=== PATIENT | female | born 1950 | race Caucasian/White ===

== ENCOUNTER → 2019-08-05 10:56 | Outpatient (CLI) | payer MEDICARE, SELFPAY ==
--- NOTE | ~2019-08-05 | XR_ITS ---
XR foot RT min 3V DATE: 08/05/2019 11:41 INDICATION: Right hammertoe. Right plantar foot pain for several years. TECHNIQUE: 3 weightbearing views COMPARISON: None FINDINGS: There is prominent plantar and posterior calcaneal enthesopathy. Pes planus. Severe osteoarthritic change at the first metatarsophalangeal joint. Moderate osteopenia. No fracture, dislocation, periosteal reaction or bone destruction is detected. 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 [facility]
== END ==
PROVIDERS: Visit Provider Podiatrist Foot & Ankle Surgery
DX: M20.41 Other hammer toe(s) (acquired), right foot (principal); M77.31 Calcaneal spur, right foot; M19.071 Primary osteoarthritis, right ankle and foot
CPT/HCPCS: 73630

== ENCOUNTER → 2020-01-05 12:06 | Outpatient (CLI) | payer MEDICARE, SELFPAY ==
--- NOTE | ~2020-01-05 | MM_ITS ---
EXAMINATION: MM screening [facility] BI w miguel a HISTORY: Screening TECHNIQUE: Craniocaudal and mediolateral oblique 3-D tomosynthesis images were obtained and synthetic 2-D images were generated. CAD analysis was submitted and interpreted. COMPARISON: Comparison to multiple prior studies sequentially, with oldest reviewed study dated 01/2015. BREAST PARENCHYMAL COMPOSITION: There are scattered areas of fibroglandular density. FINDINGS: There is no evidence of suspicious mass, calcification, or architectural distortion to sugg est malignancy in either breast. There has been no suspicious interval change. IMPRESSION: 1. No mammographic evidence of malignancy. 2. Recommend routine screening mammography in one year. BI-RADS Category 1: Negative Reviewed, dictated and finalized at location D.
== END ==
PROVIDERS: PCP Internal Medicine; Visit Provider Student in an Organized Health Care Education/Training Program
DX: Z12.31 Encounter for screening mammogram for malignant neoplasm of breast (principal)
CPT/HCPCS: 77063; 77067

== ENCOUNTER → 2020-09-20 14:11 | Outpatient (CLI) | payer MEDICARE, SELFPAY ==
--- NOTE | ~2020-09-20 | XR_ITS ---
XR lumbar spine 2-3V 09/20/2020 14:24 Indication: Low back pain Procedure: 3 views lumbar spine Comparison: No prior studies for comparison. Findings: There is disc narrowing at all lumbar levels. There is vacuum phenomenon at L3-4. There is grade 1 degenerative spondylolisthesis at L3-4 secondary to facet hypertrophy. There is advanced mult ilevel facet hypertrophy of the mid and lower lumbar spine. No acute fracture or traumatic malalignme nt. Sacral foramen are symmetric. There is moderate colonic fecal loading. Impression: 1: Severe lumbar spondylosis. Reviewed, dictated and finalized at location A. Impression: 1: Severe lumbar spondylosis.
== END ==
PROVIDERS: PCP Internal Medicine; Visit Provider Nurse Practitioner
DX: M47.816 Spondylosis without myelopathy or radiculopathy, lumbar region (principal)
CPT/HCPCS: 72100

== ENCOUNTER 2020-10-02 08:25 | Outpatient (CLI) | payer MEDICARE, SELFPAY ==
--- NOTE | ~2020-10-02 | MR_ITS ---
EXAMINATION: MR lumbar spine wo con EXAM DATE: 10/02/2020 10:07 INDICATION: M54.5 - Low back pain TECHNIQUE: Multi-sequential, multiplanar MR images of the lumbar spine were obtained without contrast . Sagittal T1, T2, T2 fat saturation images. Axial T2 weighted images. There is no prior study for comparison. FINDINGS: The conus medullaris terminates at the L1/2 level and has normal signal intensity and morph ology. There is 6 mm is anterolisthesis L3 on L4 with moderate to severe disc disease, endplate dege nerative signal change. Moderate disc disease at L4-5 and mild to moderate at L5-S1. There are no foc al marrow signal abnormalities suspicious for malignancy or acute fracture. Paraspinal soft tissue is unremarkable. Level by level evaluation: T12-L1: There is a mild diffuse disc bulge. Facet arthropathy: Minimal. Neural foraminal stenosis: No stenosis. Central canal stenosis: No stenosis. L1-L2: Disc does not extend beyond the endplate margin. Facet arthropathy: Mild. Neural foraminal stenosis: No stenosis. Central canal stenosis: No stenosis. L2-L3: There is a mild to moderate diffuse disc bulge. Facet arthropathy: Mild to moderate. Neural foraminal stenosis: Minimal bilateral. Central canal stenosis: Mild. L3-L4: There is a moderate diffuse disc bulge. Facet arthropathy: Moderate to severe . Ligamentum flavum enlargement. Neural foraminal stenosis: Moderate left, mild to moderate right. Central canal stenosis: Moderate. L4-L5: There is a moderate diffuse disc bulge. Facet arthropathy: Mild. Neural foraminal stenosis: Mild to moderate bilateral. Central canal stenosis: Mild to moderate. L5-S1: There is a moderate diffuse disc bulge, superimposed tiny right central extrusion. Facet arthropathy: Mild. Neural foraminal stenosis: Mild to moderate bilateral. Central canal stenosis: Mild. IMPRESSION: 1. L3-4 moderate to severe disc disease, moderate central canal and left neural foraminal stenosis a nd grade 1 anterolisthesis. 2. Less spondylosis other levels. Reviewed, dictated and finalized at location B. IMPRESSION: 1. L3-4 moderate to severe disc disease, moderate central canal and left neura l foraminal stenosis and grade 1 anterolisthesis. 2. Less spondylosis other levels.
== END 2020-10-02 08:26 | disposition home or self-care (01) ==
PROVIDERS: PCP Internal Medicine; Visit Provider Nurse Practitioner
DX: M54.5 Low back pain (principal); G89.29 Other chronic pain; M51.9 Unspecified thoracic, thoracolumbar and lumbosacral intervertebral disc disorder; M43.16 Spondylolisthesis, lumbar region
CPT/HCPCS: 72148

== ENCOUNTER → 2021-05-23 11:43 | Outpatient (CLI) | payer MEDICARE, SELFPAY ==
--- NOTE | ~2021-05-23 | MM_ITS ---
EXAMINATION: MM screening [facility] BI w miguel a HISTORY: Screening mammogram TECHNIQUE: Craniocaudal and mediolateral oblique 3-D tomosynthesis images were obtained and synthetic 2-D images were generated. CAD analysis was submitted and interpreted. COMPARISON: 01/05/2020, 09/22/2018, 07/23/2017 BREAST PARENCHYMAL COMPOSITION: There are scattered areas of fibroglandular density. FINDINGS: There is no evidence of suspicious mass, calcification, or architectural distortion to sugg est malignancy in either breast. There has been no suspicious interval change. IMPRESSION: 1. No mammographic evidence of malignancy. 2. Recommend routine screening mammography in one year. BI-RADS Category 1: Negative Reviewed, dictated and finalized at location A. 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
== END ==
PROVIDERS: PCP Internal Medicine; Visit Provider Internal Medicine
DX: Z12.31 Encounter for screening mammogram for malignant neoplasm of breast (principal)
CPT/HCPCS: 77063; 77067

== ENCOUNTER 2021-11-05 12:34 | Outpatient (CLI) | payer MEDICARE, SELFPAY | END 2021-11-05 12:35 | disposition home or self-care (01) | LOC: ANHAUDASC 12:36 | PROVIDERS: PCP Internal Medicine; Visit Provider Nurse Practitioner | DX: H93.13 Tinnitus, bilateral (principal); H90.3 Sensorineural hearing loss, bilateral | CPT/HCPCS: 92557; 92567 ==

== ENCOUNTER 2022-01-30 10:45 | Outpatient (CLI) | payer MEDICARE, SELFPAY ==
[2022-01-30 19:00] LABS: Basophils Percent Auto 0.5 % (0.2-1.2); Eosinophils Absolute Auto 0.2 K/mm3 (0-0.3); Hemoglobin 12.4 g/dL (12.0-15.0); Immature Granulocyte Absolute 0.03 K/mm3 (0.00-0.031); Immature Granulocyte Percent A 0.4 % (0-0.5); Lymphocytes Absolute Auto 2.16 K/mm3 (0.9-3.2); Lymphocytes Percent Auto 26.9 % (18.3-44.2); Mean Corpuscular Hemoglobin 27.9 pg (26-34); Mean Corpuscular Volume 89.9 fl (80-100); Mean Platelet Volume 11.8 fl (7.4-10.4); Monocytes Absolute Auto 0.6 K/mm3 (0.1-0.6); Monocytes Percent Auto 7.3 % (2.6-8.5); Neutrophils Percent Auto 61.9 % (45.5-73.1); Platelet Count Result 256 k/mm3 (150-375); Red Blood Count 4.45 M/mm3 (4.2-5.4); Red Cell Distribution Width 14.2 % (11.5-14.5)
[2022-01-30 19:51] LABS: Hemoglobin A1C 6.9 % (<5.7)
[2022-01-30 20:17] LABS: Alanine Aminotransferase 25 U/L (6-35); Albumin Level 4.4 g/dL (3.5-5.1); Alkaline Phosphatase 70 U/L (38-126); Anion Gap 12 mmol/L (8-16); Aspartate Amino Transferase 27 U/L (14-36); Bilirubin,Total 0.4 mg/dL (0.2-1.3); Blood Urea Nitrogen 20 mg/dL (7-17); Calcium 9.6 mg/dL (8.4-10.2); Carbon Dioxide 30 mmol/L (22-30); Chloride 98 mmol/L (98-107); Estimated Glomerular Filt Rate > 60; Glucose 228 mg/dL (65-110); Potassium 3.9 mmol/L (3.4-5.0); Sodium 140 mmol/L (137-145)
== END 2022-01-30 10:46 | disposition home or self-care (01) ==
PROVIDERS: PCP Internal Medicine; Visit Provider Clinical Nurse Specialist
DX: I10 Essential (primary) hypertension (principal); E11.9 Type 2 diabetes mellitus without complications
CPT/HCPCS: 36415; 80053; 83036; 84443; 85025

== ENCOUNTER 2022-02-12 10:34 | Outpatient (CLI) | payer MEDICARE, SELFPAY ==
--- NOTE | ~2022-02-12 | MR_ITS ---
EXAMINATION: MR brain/brain stem wo/w con DATE: 02/12/2022 11:21 INDICATION: Dizziness. TECHNIQUE: Magnetic resonance imaging (MRI) of the brain and brainstem was performed without and with 20 mL MultiHance intravenous contrast. COMPARISON: Brain MRI 09/22/2008 FINDINGS: There is an empty sella. There is no intracranial hemorrhage, acute infarction, or abnormal intracranial mass lesion. 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 There are scattered areas of nonspecific increased T2-weighted signal intensity in the cerebral white matter. The ventric les are normal in size. The orbits are normal. There is mild mucosal thickening in right maxillary si nus. The mastoid air cells are normal. IMPRESSION: 1. 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 2. Worsened mild nonspecific cerebral white matter disease, which likely represents chronic small ves saravanan ischemic disease. Reviewed, dictated and finalized at location A. IMPRESSION: 1. 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 2. Worsened mild nonspecific cerebral white matter disease, which likely repres ents chronic small vessel ischemic disease.
== END 2022-02-12 10:35 | disposition home or self-care (01) ==
LOC: ANHIMG 10:35
PROVIDERS: PCP Internal Medicine; Visit Provider Clinical Nurse Specialist
DX: R26.9 Unspecified abnormalities of gait and mobility (principal); R42 Dizziness and giddiness; Z86.73 Personal history of transient ischemic attack (TIA), and cerebral infarction without residual deficits; R90.82 White matter disease, unspecified
CPT/HCPCS: 70553; A9577

== ENCOUNTER 2022-03-13 10:16 | Outpatient (CLI) | payer MEDICARE, SELFPAY ==
[2022-03-13 20:02] LABS: Hemoglobin A1C 7.5 % (<5.7)
[2022-03-13 20:17] LABS: Cholesterol 198 mg/dL (0-200); HDL Direct 42 mg/dL; Triglycerides 169 mg/dL (<150)
[2022-03-13 20:28] LABS: LDL Cholesterol Direct 105 mg/dL
[2022-03-13 20:31] LABS: Vitamin D 25 Hydroxy 44.7 ng/mL
== END 2022-03-13 10:17 | disposition home or self-care (01) ==
LOC: ANHGOSHLAB 10:17
PROVIDERS: PCP Internal Medicine; Visit Provider Internal Medicine
DX: E55.9 Vitamin D deficiency, unspecified (principal); E11.9 Type 2 diabetes mellitus without complications
CPT/HCPCS: 36415; 80061; 82306; 83036

== ENCOUNTER 2022-09-02 09:08 | Outpatient (CLI) | payer MEDICARE, SELFPAY ==
[2022-09-02 12:39] LABS: Alanine Aminotransferase 24 U/L (6-35); Albumin Level 4.1 g/dL (3.5-5.1); Alkaline Phosphatase 85 U/L (38-126); Anion Gap 7 mmol/L (8-16); Aspartate Amino Transferase 25 U/L (14-36); Basophils Percent Auto 0.5 % (0.2-1.2); Bilirubin,Total 0.6 mg/dL (0.2-1.3); Blood Urea Nitrogen 23 mg/dL (7-17); Carbon Dioxide 31 mmol/L (22-30); Chloride 98 mmol/L (98-107); Cholesterol 165 mg/dL (0-200); Eosinophils Absolute Auto 0.2 K/mm3 (0-0.3); Eosinophils Percent Auto 2.8 % (0-4.4); Estimated Glomerular Filt Rate > 60; Glucose 143 mg/dL (65-110); HDL Direct 41 mg/dL; Hematocrit 37.8 % (37.0-47.0); Hemoglobin 12.4 g/dL (12.0-15.0); Immature Granulocyte Absolute 0.03 K/mm3 (0.00-0.031); Immature Granulocyte Percent A 0.4 % (0-0.5); Lymphocytes Absolute Auto 2.42 K/mm3 (0.9-3.2); Mean Corpuscular HGB Conc 32.8 g/dl (32-36); Mean Corpuscular Volume 85.3 fl (80-100); Mean Platelet Volume 11.1 fl (7.4-10.4); Monocytes Absolute Auto 0.6 K/mm3 (0.1-0.6); Monocytes Percent Auto 7.9 % (2.6-8.5); Neutrophils Absolute Auto 4.7 K/mm3 (1.3-6.7); Neutrophils Percent Auto 58.4 % (45.5-73.1); Platelet Count Result 249 k/mm3 (150-375); Potassium 3.7 mmol/L (3.4-5.0); Red Blood Count 4.43 M/mm3 (4.2-5.4); Red Cell Distribution Width 13.9 % (11.5-14.5); Sodium 136 mmol/L (137-145); Triglycerides 130 mg/dL (<150); White Blood Count 8.1 K/mm3 (4.5-10.0)
[2022-09-02 12:51] LABS: LDL Cholesterol Direct 88 mg/dL
[2022-09-02 13:37] LABS: Vitamin D 25 Hydroxy 55.1 ng/mL
[2022-09-02 13:49] LABS: Hemoglobin A1C 6.9 % (<5.7)
== END 2022-09-02 09:09 | disposition home or self-care (01) ==
LOC: ANHGOSHLAB 09:11
PROVIDERS: PCP Internal Medicine; Visit Provider Nurse Practitioner
DX: E11.9 Type 2 diabetes mellitus without complications (principal); I10 Essential (primary) hypertension; E78.5 Hyperlipidemia, unspecified; E55.9 Vitamin D deficiency, unspecified
CPT/HCPCS: 36415; 80053; 80061; 82306; 83036; 85025

== ENCOUNTER 2023-01-21 15:25 | Outpatient (CLI) | payer MEDICARE, SELFPAY ==
[2023-01-21 16:33] LABS: Appearance Urine Cloudy (Clear); Bacteria Urine 4+ /hpf; Bilirubin Urine Negative (Negative); Blood Urine Negative (Negative); Color Urine Dark Yellow (Yellow); Glucose Urine UA Negative (Negative); Ketones Urine Trace mg/dL (Negative); Leukocyte Esterase Ur 2+ LEU/UL (Negative); Nitrate Urine Positive (Negative); Protein Urine Negative (Negative); RBC Urine 0-2 /hpf (0-2); Specific Grav Ur 1.018 (1.001-1.035); Squamous Epithelial Cell Urine Few /hpf (Few); WBC Urine 21-50 /hpf
[2023-01-21 16:49] LABS: Add Urine Microscopic? YES
== END 2023-01-21 15:26 | disposition home or self-care (01) ==
PROVIDERS: PCP Internal Medicine; Visit Provider Registered Nurse
DX: R39.9 Unspecified symptoms and signs involving the genitourinary system (principal)
CPT/HCPCS: 81001; 87077; 87086; 87186

== ENCOUNTER 2023-02-13 14:57 | Outpatient (CLI) | payer MEDICARE, SELFPAY ==
[2023-02-13 16:19] LABS: MALB Creatinine Ratio < 8.5 mg/g (0-30); Microalbumin Urine Random < 6.0 mg/L (0-16.7)
== END 2023-02-13 14:58 | disposition home or self-care (01) ==
PROVIDERS: Nurse Practitioner; PCP Internal Medicine; Visit Provider Registered Nurse
DX: N39.0 Urinary tract infection, site not specified (principal); E11.9 Type 2 diabetes mellitus without complications; I10 Essential (primary) hypertension
CPT/HCPCS: 82043; 87086

== ENCOUNTER 2023-02-18 10:27 | Outpatient (CLI) | payer MEDICARE, SELFPAY ==
[2023-02-18 11:53] LABS: Anion Gap 6 mmol/L (8-16); Blood Urea Nitrogen 17 mg/dL (7-17); Calcium 9.1 mg/dL (8.4-10.2); Carbon Dioxide 29 mmol/L (22-30); Chloride 101 mmol/L (98-107); Estimated Glomerular Filt Rate > 60; Glucose 133 mg/dL (65-110); Potassium 3.7 mmol/L (3.4-5.0); Sodium 136 mmol/L (137-145)
== END 2023-02-18 10:28 | disposition home or self-care (01) ==
LOC: ANHLAB 10:29
PROVIDERS: PCP Internal Medicine; Visit Provider Nurse Practitioner
DX: E11.9 Type 2 diabetes mellitus without complications (principal); I10 Essential (primary) hypertension
CPT/HCPCS: 36415; 80048; 83036

== ENCOUNTER → 2023-05-22 10:35 | Outpatient (CLI) | payer MEDICARE, SELFPAY ==
--- NOTE | ~2023-05-22 | MM_ITS ---
EXAMINATION: MM screening [facility] BI w miguel a HISTORY: Screening mammogram TECHNIQUE: Craniocaudal and mediolateral oblique 3-D tomosynthesis images were obtained and synthetic 2-D images were generated. CAD analysis was submitted and interpreted. COMPARISON: 05/23/2021, 01/05/2020 bilateral screening mammogram examinations BREAST PARENCHYMAL COMPOSITION: There are scattered areas of fibroglandular density. FINDINGS: There is no evidence of suspicious mass, calcification, or architectural distortion to sugg est malignancy in either breast. There has been no suspicious interval change. IMPRESSION: 1. No mammographic evidence of malignancy. 2. Recommend routine screening mammography in one year. BI-RADS Category 1: Negative Reviewed, dictated and finalized at location A. 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
== END ==
PROVIDERS: PCP Nurse Practitioner; Visit Provider Nurse Practitioner
DX: Z12.31 Encounter for screening mammogram for malignant neoplasm of breast (principal)
CPT/HCPCS: 77063; 77067

== ENCOUNTER 2023-05-22 10:37 | Outpatient (CLI) | payer MEDICARE, SELFPAY ==
--- NOTE | ~2023-05-22 | DEXA_ITS ---
Bone Density Report Name: VICKY VASQUEZ Age: 73 Sex: Female Ethnicity: White Date of : 1950 Indication: postmenopausal; screening for osteoporosis; height loss; hysterectomy; Referring Provider: GONZALO CRANE Study: Bone densitometry was performed. Exam Date: May 22, 2023 Accession number: [id number] Bone Density: Region BMD T-score Z-score Classification AP Spine (L1, L2, L3) 1.026 0.1 2.3 Normal Femoral Neck (Left) 0.848 0.0 1.9 Normal Total Hip (Left) 1.039 0.8 2.4 Normal Femoral Neck (Right) 0.803 -0.4 1.5 Normal Total Hip (Right) 0.964 0.2 1.8 Normal Total Hip Mean 1.002 0.5 2.1 Normal World Health Organization criteria for BMD impression classify patients as: Normal (T-score at or above -1.0), Osteopenia (T-score between -1.0 and -2.5), or Osteoporosis (T-score at or below -2.5). 10-year Fracture Risk: FRAX not reported because: All T-scores for Spine Total, Hip Total, Femoral Neck at or above -1.0 Previous Exams: Region Exam Age BMD T-score BMD Change BMD Change Date g/cm2 vs Baseline vs Previous AP Spine(L1, L2, L3) 05/22/2023 73 1.026 0.1 -0.081* -0.081* 09/22/2018 68 1.108 0.8 Total Hip(Left) 05/22/2023 73 1.039 0.8 0.002 0.002 09/22/2018 68 1.037 0.8 Total Hip(Right) 05/22/2023 73 0.964 0.2 -0.037* -0.037* 09/22/2018 68 1.000 0.5 *Denotes significance at 95% confidence level, LSC for AP Spine = 0.022 g/cm2, LSC for Total Hip = 0.027 g/cm2 Clinical Information Provided by Patient: Has used the following medications: Vitamin D Has the following medical conditions: Hysterectomy Patient maximum height was 66.5 Menopause Age: 53 No regular weight bearing exercise Does not regularly consume dairy products Drinks caffeinated beverages Onset of menses at age 15 Number of children 2 Impression: The patient has normal bone mass. The BMD for the AP Spine(L1, L2, L3) decreased, changing by -0.081 since the last DXA exam. The BMD for the Total Hip(Right) decreased, changing by -0.037 since the last DXA exam. Discussion: BONE DENSITY IS ABOVE THE MINIMUM DESIRABLE LEVEL AT ALL SKELETAL SITES TESTED. This patient?s bone mineral density is above the minimum desirable level (T-score -1.0 or better) at all sites measured. The patient should follow a healthful lifestyle (good nutrition with adequate calcium and vitamin D, and appropriate weight-bearing ex
== END 2023-05-22 10:38 ==
LOC: MICIMG 10:37
PROVIDERS: PCP Registered Nurse; Visit Provider Registered Nurse
DX: Z13.820 Encounter for screening for osteoporosis (principal); R29.890 Loss of height; N95.0 Postmenopausal bleeding; Z78.0 Asymptomatic menopausal state
CPT/HCPCS: 77080

== ENCOUNTER 2023-06-10 08:48 | Day surgery (SDC) | payer MEDICARE, SELFPAY ==
--- NOTE | ~2023-06-10 | XR_ITS ---
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 TECHNIQUE: 9 fluoroscopic images of the lumbar spine were obtained during bilateral L3, L4, and L5 bl ocks performed by the surgeon. I was not present in the operating room. Fluoroscopy exposure time was 45.1 seconds. Air Kerma 33.36 mGy. COMPARISON: None FINDINGS: Multiple fluoroscopic images demonstrate needle access at the L3, L4, and L5 vertebral levels lateral ly, followed by contrast injection. IMPRESSION: Fluoroscopic documentation of bilateral L3, L4, and L5 blocks. Please refer to the operative note for complete procedural details . Reviewed, dictated and finalized at location K. 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
--- NOTE | 2023-06-10 09:10 | WPDHPUPDATE1 ---
History and Physical Update Update Date/Time: 06/10/23 09:10 History and Physical has been reviewed, including an updated exam of the patient. There are NO changes in the patient's condition. Risks, benefits, and alternatives have been discussed and questions answered. Patient agrees to proceed with procedure.
[2023-06-10 09:24] VITALS: BP 151/76; PULSE 72; RESP 16; TEMP 36.7; O2SAT 99
[2023-06-10 11:35] VITALS: BP 157/76; PULSE 75; RESP 17; O2SAT 98
[2023-06-10] MEDS: BUPivacaine HCL 0.5% 10 ML AMP 5 ML INFILTRATE (11:41)
[2023-06-10 11:45] VITALS: BP 131/68; PULSE 75; RESP 22; O2SAT 96
--- NOTE | 2023-06-10 11:58 | W.PM.PROC2 ---
Procedure Note - Detailed Date of Procedure 06/10/23 Pre-op Diagnosis Spondylosis Lumbosacral Region, chronic low back pain Post-op Diagnosis Same Procedure Performed bilateral L3, L4, L5 medial branch/dorsal ramus nerve blocks (#1) addressing the bilateral L4-5, L5-S1 facet joints under fluoroscopic guidance with contrast control. Surgeon Howie Spencer MD Anesthesia Local Description of Procedure INFORMED CONSENT: Risks, benefits and alternatives to the procedure were discussed in detail with the patient who expressed explicit understanding and consent to proceed. Patient was informed verbally and in written form regarding the risks associated with the procedure including the low risk of serious infection, bleeding/bruising, allergic reaction, nerve or organ injury, paralysis, procedural site pain or discomfort, worsening pain and/or mobility, failure to treat and/or disfigurement. The patient expressed explicit understanding and consent to proceed. All materials required for the procedure were available prior to procedure start. Site and side were marked prior to procedure and confirmed in the presence of the patient. PROCEDURE IN DETAIL: The patient was brought to the procedural suite and placed in the prone position. Patient was made comfortable with use of pillows under the head/chest, hips and ankles. Skin overlying the injection site on the affected side(s) was prepared broadly with ChloraPrep applicator and draped in a sterile manner. Aseptic technique was used throughout. The endplates of the vertebral bodies at the site(s) of interest were aligned in the AP view. Ipsilateral oblique angulation was utilized to optimize visualization of the intersection between the superior articulating process and transverse process at each target site. Local anesthesia was established by infiltration with approximately 5 mL of 1% lidocaine via a 1-1/2 inch 27-gauge needle. A 25-gauge 5.0 inch Quincke spinal needle was advanced until the needle tip contacted periosteum at the target site, right L3. Lateral view was utilized to confirm the appropriate placement of the needle tip just anterior to the facet line and superior to the pedicle. In the Lateral view, 0.25 mL of Omnipaque 300 contrast medium was injected after negative aspiration for CSF, blood or other bodily fluid, showing appropriate extra-articular spread of contrast without evidence of intravascular, foraminal or intrathecal placement. A 0.5 mL solution of 0.5% preservative-free bupivacaine was injected after negative repeat aspiration. Appropriate spread of the injectate was confirmed with washout of previously injected contrast. No parasthesias were elicited. Needle was removed completely intact without difficulty. The same exact procedure was repeated for all remaining levels on the ipsilateral side, right L4, L5 medial branches/dorsal ramus, modified as necessary to accommodate for the new target location with identical findings and results and no evidence of complication. The same exact procedure was repeated for all remaining levels on the contralateral side, left L3, L4, L5 medial branches/dorsal ramus, modified as necessary to accommodate for the new target location with identical findings and results and no evidence of complication. Images were saved and documented in the patient chart. Patient's skin was cleaned and sterile bandage applied. The patient tolerated the procedure well. The patient was transported to the recovery area in stable condition where they were observed for an appropriate amount of time prior to discharge, without evidence of complication. Patient was instructed on the appropriate completion of a pain diary over the next 12-24 hours. The patient was instructed to avoid excessive activity for the next 48 hours, including climbing and frequent use of stairs. Showers only for 48 hours. They were instructed not to drive or operate heavy machinery for 24 hours. They are to mo
[2023-06-10] MEDS: LIDOCAINE HCL 1% PF INJ 5 ML VIAL INFILTRATE (12:01)
[2023-06-10 12:05] VITALS: BP 138/72; PULSE 65; RESP 20; O2SAT 93
== END 2023-06-10 12:18 | disposition home or self-care (01) ==
PROVIDERS: PCP Internal Medicine; Visit Provider Anesthesiology Pain Medicine
PROC: (CPT 64493; principal; 2023-06-10 11:00)
DX: M47.817 Spondylosis without myelopathy or radiculopathy, lumbosacral region (principal); M54.59 Other low back pain
CPT/HCPCS: 64493; 64494; 64495; 99199

== ENCOUNTER → 2023-06-30 10:59 | Outpatient (CLI) | payer MEDICARE, SELFPAY ==
--- NOTE | ~2023-06-30 | MR_ITS ---
MRI of the lumbar spine Clinical History: Spinal stenosis Technique: Axial T2-weighted images, and sagittal T1-weighted, T2-weighted, and and T2 fat-sat images were acquired. COMPARISON: 10/02/2020 Findings: There is no acute fracture of the lumbar spine. 5 mm anterolisthesis of L3 over L4 similar to prior exam. No suspicious bone marrow signal reality seen. At L1-L2, there is minimal disc bulge with mild facet arthropathy. No central canal stenosis or defin ite neural foraminal narrowing. At L2-L3, there is mild disc bulge with moderate facet arthropathy. No central canal stenosis. Probab le minimal left neural foraminal narrowing. At L3-L4, there is advanced degenerative disc narrowing. There is diffuse disc bulge with severe face t arthropathy, resulting in mild central canal stenosis. There is severe left neural foraminal narrow ing, and minimal right neural foraminal narrowing. At L4-L5, there is advanced degenerative disc narrowing. There is diffuse disc bulge with moderate to advanced facet arthropathy. No central canal stenosis identified. There is mild to moderate bilatera l neural foraminal narrowing. At L5-S1, there is disc bulge and advanced facet arthropathy. No central canal stenosis. There is mil d to moderate bilateral neural foraminal narrowing, left worse than right. Paravertebral soft tissues are unremarkable. Impression: Moderate degenerative spondylosis, as above, probably worst at L3-L4. 5 mm anterolisthesis of L3 over L4. Reviewed, dictated and finalized at [facility]. CTOR OF LEARNING Impression: Moderate degenerative spondylosis, as above, probably worst at L3-L4. 5 mm anterolisthesis of L3 over L4.
== END ==
PROVIDERS: PCP Internal Medicine; Visit Provider Anesthesiology Pain Medicine
DX: M54.51 Vertebrogenic low back pain (principal); M48.061 Spinal stenosis, lumbar region without neurogenic claudication; M43.06 Spondylolysis, lumbar region
CPT/HCPCS: 72148

== ENCOUNTER 2023-07-08 07:33 | Day surgery (SDC) | payer MEDICARE, SELFPAY ==
--- NOTE | ~2023-07-08 | XR_ITS ---
EXAMINATION: XR fluoroscopy no charge DATE: 07/08/2023 10:56 INDICATION: Bilateral L3-L5 nerve blocks TECHNIQUE: 15 fluoroscopic images of the lumbar spine were obtained during procedure performed by Dr. Spencer. Radiologist was not present for the imaging or procedure. The amount of fluoroscopy time used during this procedure was 0.4 minutes. COMPARISON: None. FINDINGS: Images demonstrate needles advanced to the region of the junction of the superior facet and transvers e processes of L4-S1 on both the left and right. IMPRESSION: 1. Fluoroscopy utilized during pain management procedure the lower lumbar spine. See procedure note f or further detail. Reviewed, dictated and finalized at location A. PROCESSOR IMPRESSION: 1. Fluoroscopy utilized during pain management procedure the lower lumbar spine . See procedure note for further detail.
--- NOTE | 2023-07-08 08:12 | WPDHPUPDATE1 ---
History and Physical Update Update Date/Time: 07/08/23 08:12 History and Physical has been reviewed, including an updated exam of the patient. There are NO changes in the patient's condition. Risks, benefits, and alternatives have been discussed and questions answered. Patient agrees to proceed with procedure.
--- NOTE | 2023-07-08 08:14 | W.PM.PROC2 ---
Procedure Note - Detailed Date of Procedure 07/08/23 Pre-op Diagnosis Lumbosacral Spondylosis, Chronic low back pain Post-op Diagnosis Same Procedure Performed bilateral L3, L4, L5 medial branch/ dorsal ramus nerve blocks (#2) addressing the bilateral L4-5, L5-S1 facet joints under fluoroscopic guidance with contrast control. Surgeon Howie Spencer MD Anesthesia Local Description of Procedure INFORMED CONSENT: Risks, benefits and alternatives to the procedure were discussed in detail with the patient who expressed explicit understanding and consent to proceed. Patient was informed verbally and in written form regarding the risks associated with the procedure including the low risk of serious infection, bleeding/bruising, allergic reaction, nerve or organ injury, paralysis, procedural site pain or discomfort, worsening pain and/or mobility, failure to treat and/or disfigurement. The patient expressed explicit understanding and consent to proceed. All materials required for the procedure were available prior to procedure start. Site and side were marked prior to procedure and confirmed in the presence of the patient. PROCEDURE IN DETAIL: The patient was brought to the procedural suite and placed in the prone position. Patient was made comfortable with use of pillows under the head/chest, hips and ankles. Skin overlying the injection site on the affected side(s) was prepared broadly with ChloraPrep applicator and draped in a sterile manner. Aseptic technique was used throughout. The endplates of the vertebral bodies at the site(s) of interest were aligned in the AP view. Ipsilateral oblique angulation was utilized to optimize visualization of the intersection between the superior articulating process and transverse process at each target site. Local anesthesia was established by infiltration with approximately 5 mL of 1% lidocaine via a 1-1/2 inch 27-gauge needle. A 25-gauge 5.0 inch Quincke spinal needle was advanced until the needle tip contacted periosteum at the target site, right L3. Lateral view was utilized to confirm the appropriate placement of the needle tip just anterior to the facet line and superior to the pedicle. In the Lateral view, 0.25 mL of Omnipaque 300 contrast medium was injected after negative aspiration for CSF, blood or other bodily fluid, showing appropriate extra-articular spread of contrast without evidence of intravascular, foraminal or intrathecal placement. A 0.5 mL solution of 2.0% preservative-free lidocaine was injected after negative repeat aspiration. Appropriate spread of the injectate was confirmed with washout of previously injected contrast. No parasthesias were elicited. Needle was removed completely intact without difficulty. The same exact procedure was repeated for all remaining levels on the ipsilateral side, right L4, L5 medial branches/dorsal ramus, modified as necessary to accommodate for the new target location with identical findings and results and no evidence of complication. The same exact procedure was repeated for all remaining levels on the contralateral side, left L3, L4, L5 medial branches/dorsal ramus, modified as necessary to accommodate for the new target location with identical findings and results and no evidence of complication. Images were saved and documented in the patient chart. Patient's skin was cleaned and sterile bandage applied. The patient tolerated the procedure well. The patient was transported to the recovery area in stable condition where they were observed for an appropriate amount of time prior to discharge, without evidence of complication. Patient was instructed on the appropriate completion of a pain diary over the next 12-24 hours. The patient was instructed to avoid excessive activity for the next 48 hours, including climbing and frequent use of stairs. Showers only for 48 hours. They were instructed not to drive or operate heavy machinery for 24 hours. They are to monitor fo
[2023-07-08 08:23] VITALS: BP 146/80; PULSE 90; RESP 20; TEMP 36.6; O2SAT 98
[2023-07-08 09:14] VITALS: BP 155/83; PULSE 90; RESP 15; O2SAT 96
[2023-07-08 09:18] VITALS: BP 162/85; PULSE 88; RESP 18; O2SAT 98
[2023-07-08 09:26] VITALS: BP 162/81; PULSE 94; RESP 13; O2SAT 97
[2023-07-08] MEDS: LIDOCAINE HCL 2% PF INJ 5 ML VIAL 3 ML INFILTRATE (09:28)
[2023-07-08 09:34] VITALS: BP 138/72; PULSE 83; RESP 18; O2SAT 97
[2023-07-08] MEDS: LIDOCAINE HCL 1% PF INJ 5 ML VIAL XX (09:35)
== END 2023-07-08 09:47 | disposition home or self-care (01) ==
PROVIDERS: PCP Internal Medicine; Visit Provider Anesthesiology Pain Medicine
PROC: (CPT 64493; principal; 2023-07-08 09:15)
DX: M47.817 Spondylosis without myelopathy or radiculopathy, lumbosacral region (principal); M54.59 Other low back pain
CPT/HCPCS: 64493; 64494; 99199

== ENCOUNTER 2023-08-29 09:36 | Outpatient (CLI) | payer MEDICARE, SELFPAY ==
[2023-08-29 13:33] LABS: Basophils Percent Auto 0.4 % (0.2-1.2); Eosinophils Absolute Auto 0.2 K/mm3 (0-0.3); Eosinophils Percent Auto 2.6 % (0-4.4); Hematocrit 39.3 % (37.0-47.0); Hemoglobin 12.2 g/dL (12.0-15.0); Immature Granulocyte Absolute 0.03 K/mm3 (0.00-0.031); Immature Granulocyte Percent A 0.4 % (0-0.5); Lymphocytes Absolute Auto 2.27 K/mm3 (0.9-3.2); Lymphocytes Percent Auto 29.9 % (18.3-44.2); Mean Corpuscular Hemoglobin 27.2 pg (26-34); Mean Corpuscular Volume 87.5 fl (80-100); Mean Platelet Volume 11.5 fl (7.4-10.4); Monocytes Absolute Auto 0.6 K/mm3 (0.1-0.6); Monocytes Percent Auto 7.4 % (2.6-8.5); Neutrophils Absolute Auto 4.5 K/mm3 (1.3-6.7); Neutrophils Percent Auto 59.3 % (45.5-73.1); Platelet Count Result 276 k/mm3 (150-375); Red Blood Count 4.49 M/mm3 (4.2-5.4); Red Cell Distribution Width 14.7 % (11.5-14.5); White Blood Count 7.6 K/mm3 (4.5-10.0)
[2023-08-29 13:47] LABS: Cholesterol 167 mg/dL (0-200); HDL Direct 39 mg/dL; Triglycerides 137 mg/dL (<150)
[2023-08-29 13:53] LABS: Prothrombin Time 13.5 Seconds (11.1-14.7)
[2023-08-29 13:54] LABS: Partial Thromboplastin Time 31.2 Seconds (22.3-36.8)
[2023-08-29 13:57] LABS: LDL Cholesterol Direct 109 mg/dL
[2023-08-29 14:05] LABS: Alanine Aminotransferase 25 U/L (6-35); Alkaline Phosphatase 83 U/L (38-126); Anion Gap 3 mmol/L (4-12); Aspartate Amino Transferase 54 U/L (14-36); Bilirubin,Total 0.6 mg/dL (0.2-1.3); Blood Urea Nitrogen 20 mg/dL (7-17); Calcium 9.5 mg/dL (8.4-10.2); Carbon Dioxide 33 mmol/L (22-30); Chloride 101 mmol/L (98-107); Estimated Glomerular Filt Rate > 60; Glucose 163 mg/dL (65-110); Sodium 137 mmol/L (137-145)
[2023-08-29 14:12] LABS: Vitamin D 25 Hydroxy 65.7 ng/mL
[2023-08-29 14:26] LABS: Hemoglobin A1C 8.3 % (<5.7)
== END 2023-08-29 09:37 | disposition home or self-care (01) ==
PROVIDERS: Anesthesiology Pain Medicine; Nurse Practitioner; PCP Internal Medicine; Visit Provider Internal Medicine
DX: M54.51 Vertebrogenic low back pain (principal); E11.59 Type 2 diabetes mellitus with other circulatory complications; I15.2 Hypertension secondary to endocrine disorders; N89.8 Other specified noninflammatory disorders of vagina; E55.9 Vitamin D deficiency, unspecified
CPT/HCPCS: 36415; 80053; 80061; 82306; 83036; 85025; 85610; 85730

== ENCOUNTER 2024-02-06 12:41 | Outpatient (CLI) | payer MEDICARE, SELFPAY ==
[2024-02-06 13:09] LABS: Anion Gap 9 mmol/L (4-12); Blood Urea Nitrogen 15 mg/dL (7-17); Calcium 9.6 mg/dL (8.4-10.2); Carbon Dioxide 32 mmol/L (22-30); Chloride 97 mmol/L (98-107); Estimated Glomerular Filt Rate > 60; Glucose 170 mg/dL (65-110); Potassium 4.7 mmol/L (3.4-5.0); Sodium 138 mmol/L (137-145)
--- NOTE | 2024-02-06 13:10 | ECG_ITS ---
Test Date: 2024-02-06 13:32:52 Measurements Intervals [place] Rate: P: ME: QRS: QRSD: T: QT: QTc: Interpretive Statements SINUS RHYTHM WITH FIRST DEGREE AV BLOCK LOW VOLTAGE IN PRECORDIAL LEADS BORDERLINE ECG Electronically Signed On 02-06-2024 15:36:20 CDT by Filemon Kay D.O.
== END 2024-02-06 12:42 | disposition home or self-care (01) ==
LOC: ANHLAB 12:46
PROVIDERS: PCP Internal Medicine; Visit Provider Anesthesiology
DX: I44.0 Atrioventricular block, first degree (principal); E11.59 Type 2 diabetes mellitus with other circulatory complications; I15.2 Hypertension secondary to endocrine disorders
CPT/HCPCS: 36415; 80048; 93005

== ENCOUNTER 2024-02-16 00:40 | Day surgery (SDC) | payer MEDICARE, SELFPAY ==
[2024-02-06 10:01] VITALS: BMI 42.4
--- NOTE | 2024-02-06 10:46 | PC.NURSE ---
Addendum entered by La Nena Blum RN 02/09/24 10:12: Pt informed no food or drink after midnight. Pt aware to take amlodipine and metoprolol with a small sip of water morning of surgery. Pt to stop vitamins/supplements with last dose being 02/11. Original Note: Report to the Outpatient Waiting Room, entrance under the green pavilion located off [facility], at time __1130 on date ___02/16/24____. Planned Procedure Time: __1330 .? Time changes happen often and if your time is changed the preop area will call you the afternoon before. - You and your visitor will be asked to self-screen and do not enter if you have any COVID symptoms. Please call surgeon if you need to reschedule. - A mask is optional within the hospital at this time. Patients may have clear liquids (water, carbonated beverages, clear teas, apple juice) until 3 hours prior to surgery with a maximum of 20 ounces. - No food from midnight until time of surgery and no smoking - Infants may have breast milk until 4 hours before surgery, infant formula 6 hours prior to surgery. - Children will be allowed to drink immediately following surgery.? If applicable, please bring a bottle or sippy cup to assist with drinking. Juice, water, soda, and popsicles are readily available.? For infants on formula, please bring formula the day of surgery.? Pacifiers are allowed. Take only the following medications with a SIP of water on the morning of surgery: blood pressure medications only DO NOT STOP ANY OF YOUR OTHER PRESCRIPTION MEDICATIONS PRIOR TO SURGERY EXCEPT THE FOLLOWING Medications to discontinue per physician stop aspirin 7 days prior to surgery per orders Date to take last dose____02/08/24 Please no make-up, nail slovenian, hairspray, perfume, deodorant, or body powder the day of surgery.? No jewelry (including any body piercings) or valuables the day of surgery, leave them at home.? Please take a shower or bath the night before, or the morning of, surgery with an antibacterial soap.? Wear comfortable, loose fitting clothing.? Children are encouraged to wear pajamas. - Jewelry must be removed prior to entering the operating room.? Rings and piercings that are not removed may be cut off. - The hospital will not accept responsibility for valuables.? - Please leave all valuables, including medications, at home the day of surgery. If you are going home after surgery, a licensed speedboat driver must drive you home.? - NO public transportation without another adult if you receive anesthesia. - We recommend that an adult stay with you for 24 hours following discharge. - We also recommend that you do not drive, make important decision, drink alcoholic beverages, or take any drugs that were not prescribed by your health care provider for at least 24 hours after your discharge time. For Pediatric surgeries, we recommend two adults accompany the child home. Follow any additional instructions given to you from your surgeon. Telephone instructions given to Eveline Rios__and asked if any additional questions and then verbalized understanding. Patient advised to call surgeon office or pre surgery nurse liaison [phone] if any additional questions.
--- NOTE | ~2024-02-16 | XR_ITS ---
EXAMINATION: XR fluoroscopy no charge DATE: 02/16/2024 13:30 CDT INDICATION: INTRACEPT PROCEDURE L3, L4, L5 . TECHNIQUE: 33 fluoroscopic images of the lumbar spine were obtained during Intracept procedure, perfo rmed by Howie Spencer MD. I was not present during the procedure. Fluoroscopy exposure time was 3 minutes 29.6 seconds. Air Kerma 241.01 mGy. DAP 47.778 mGym2. COMPARISON: None FINDINGS/IMPRESSION: Fluoroscopic documentation of Intracept procedure. Please refer to the operative note for complete pr ocedural details . Reviewed, dictated and finalized at location K.
[2024-02-16] MEDS: LACTATED RINGERS 1,000 ML 30 ML IV CONT (12:30)
--- NOTE | 2024-02-16 12:40 | WPDHPUPDATE1 ---
History and Physical Update Update Date/Time: 02/16/24 12:40 History and Physical has been reviewed, including an updated exam of the patient. There are NO changes in the patient's condition. Risks, benefits, and alternatives have been discussed and questions answered. Patient agrees to proceed with procedure.
[2024-02-16 12:41] LABS: Glucose Point of Care 151 mg/dl (65-105)
--- NOTE | 2024-02-16 12:41 | W.PM.PROC2 ---
Procedure Note - Detailed Date of Procedure 02/16/24 Pre-op Diagnosis vertebrogenic low back pain Post-op Diagnosis Same Procedure Performed Percutaneous transpedicular intraosseous basivertebral nerve thermal radiofrequency ablation (Intracept procedure) at L3, L4, L5 under fluoroscopic guidance. Surgeon Howie Spencer MD Steaming Cabinet Tender None. Anesthesia General (GETA] in the [prone] position with infiltration of local anesthetic. 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 They are significantly limited in their daily and/or work-related activities as a result, including sitting, standing, lifting/carrying and sleeping, with failure to respond to and/or tolerate extensive efforts at more conservative management (i.e. oral and topical analgesics including NSAIDs, acetaminophen and opioids, Physical Therapy and modalities, time/rest, interventional procedures/corticosteroid injections) for greater than 6 months prior to today's procedure establishing medical necessity for this well-studied and FDA-approved pain-relieving procedure. INFORMED CONSENT: Procedure was discussed in detail with the patient at a previous visit and at the time of surgery. During this discussion, the risks, benefits, and alternatives to the procedure, including doing nothing, were thoroughly described to the patient, who expressed explicit understanding and consent to proceed. Specific risks discussed with the patient included, but were not limited to the risk of serious local or systemic infection, skin burn/scarring, major or minor bleeding/bruising, allergic reaction to medications or materials, inadvertent lung or other organ injury, new or worsening spinal fracture, inadvertent thermal or mechanical nerve or spinal cord injury resulting in increased pain, weakness, numbness or loss of bowel or bladder control, the need for repeat or additional surgery, inadvertent dural puncture resulting in acute or chronic CSF leak and post-dural puncture headache, failure to treat pain, and risks associated with general anesthesia in the prone position including eye, dental, joint, nerve, spine or soft tissue injury/pain related to positioning, heart attack, respiratory failure, aspiration, pneumonia, DVT/PE or thrombosis, hemorrhagic or ischemic stroke, hypoxia, hypo- or hypertension, seizure, coma and . Patient understands these risks and agrees that the opportunity for benefit outweighs the potential risk of harm. Procedure specific informed consent form was read, reviewed, signed by the patient and surgeon and witnessed in the pre-operative area. All pertinent questions were asked and answered to the patient's satisfaction. Surgical site was pre-treated with chlorhexidine wipes. All materials required for the procedure were available and site and side of procedure was marked prior to procedure start. Appropriate timeout was conducted by all participants in the OR (patient's ID, procedure to be performed, procedure site and side, allergies and appropriate medications including pre-operative antibiotics were verified) prior to incision. PROCEDURE IN DETAIL: After full informed consent and adequate IV access was obtained without difficulty; the patient was escorted to the procedural suite. ASA standard monitors were applied and utilized throughout the case. Prophylactic antibiotics were administered prior to procedure start. GETA was initiated without difficulty or event. Eyes were protected. Patient was converted to the prone position in optimal flexion using pillows under the abdomen, hips and ankles. Pressure points were padded, cervical spine and joints were placed in neutral position. Eyes, breasts and genitals were evaluated a
--- NOTE | 2024-02-16 13:02 | WPDANESEPPF ---
Anes - Initial Pre Proc Eval Procedure: Operation Date: 02/16/24 13:30 Proposed Procedures p Intracept Procedure L3, L4, L5 with Fluoroscopic Guidance - Howie Spencer MD Date/Time: 02/16/24 13:02 Surgeon: Howie Spencer MD Pre Op Diagnosis: vertebrogenic low back pain Patient Data Age: 73 Gender: F Height: 1.63 m Weight: 112.2 kg Allergies Allergy/AdvReac Type Severity Reaction Status Date / Time No Known Allergies Allergy Verified 02/06/24 09:51 Home Medications Medication Instructions Recorded Confirmed Type multivitamin 1 tablet PO DAILY 04/13/19 02/06/24 History aspirin 81 mg tablet,delayed 81 mg PO HS 03/21/22 02/06/24 History release (Adult Aspirin Regimen) cholecalciferol (vitamin D3) 50 2,000 mcg PO DAILY 09/23/22 02/06/24 History mcg (2,000 unit) capsule esomeprazole magnesium 20 mg 20 mg PO DAILY 05/12/23 02/06/24 History capsule,delayed release atorvastatin 80 mg tablet 80 mg PO QHS #100 tabs 07/28/23 02/06/24 Rx losartan 50 mg tablet See Rx Instructions .Route 07/28/23 02/06/24 Rx .COMPLEX #150 tabs metoprolol tartrate 25 mg tablet See Rx Instructions .Route 07/30/23 02/06/24 Rx .COMPLEX #200 tabs metformin 500 mg tablet 500 mg PO BID #200 tabs 11/24/23 02/06/24 Rx amlodipine 10 mg tablet 10 mg PO DAILY 02/06/24 02/06/24 History famotidine 20 mg tablet 20 mg PO DAILY 02/06/24 02/06/24 History hydrochlorothiazide 25 mg tablet 25 mg PO DAILY 02/06/24 02/06/24 History Laboratory Tests 02/16/24 12:35 POC Capillary Glucose 151 H mg/dl (65-105) Patient hx anesthesia problems: none Family hx anesthesia problems: none Results Review: All pre-operative results and documents have been reviewed as part of the pre-operative evaluation. [facility] Past Medical History Medical History FH: total knee replacement Hammer toe of right foot Hammer toe surgery 02/2020 History of vaginal delivery x 2 Hyperlipidemia Hypertension Keloid Lumbar stenosis Migraine Obesity Type 2 diabetes mellitus Surgical History Surgical History H/O total hysterectomy History of carpal tunnel release Left History of dilation and curettage History of knee replacement History of myomectomy Family History Family History Father Diabetes mellitus Grandparent Diabetes mellitus Family history of Parkinson's disease Sibling Bladder cancer Mother MVA (motor vehicle accident) Sibling No problems noted. Social History Social History Smoking packs per day: 2 Smoking cigarettes per day: 40.0 Smoking status: Former smoker Tobacco type: cigarettes Second hand tobacco smoke exposure: No Smoking end date: 09/30/74 Alcohol intake: current Alcohol use details: 1 or 2 drinks per month Substance use: never Substance use type: does not use Do You Feel Safe in your Home?: Yes Lack of Transportation: No Lack of Food: Never True Current Housing: I Have Housing Concerned About Future Housing: No Difficulty Paying Gas/Electric Bills: No Difficulty Paying for Meds: No Currently Unemployed: No Education: High School Diploma/GED Difficulty w/ Childcare or Family Care: No Living arrangements: [facility] Occupation/Education: retired 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
[2024-02-16] MEDS: ceFAZolin 2 GM/D5W 50 ML 2 GM/50 ML BAG IVPB (13:05)
[2024-02-16] MEDS: LIDOCAINE HCL 1% LOCAL INJ 20 ML VIAL 10 ML INFILTRATE (13:23)
[2024-02-16] MEDS: BUPIVACAINE/EPINEPHRINE 0.5% 50 ML VIAL 10 ML INFILTRATE (13:23)
[2024-02-16 14:25] VITALS: BP 156/109; PULSE 87; RESP 14; TEMP 36.5; O2SAT 98
[2024-02-16 14:40] VITALS: BP 166/82; PULSE 87; RESP 20; O2SAT 99
[2024-02-16 14:55] VITALS: BP 136/65; PULSE 80; RESP 16; O2SAT 94
[2024-02-16 14:58] VITALS: BP 152/70; PULSE 80; RESP 16; O2SAT 94
[2024-02-16 15:20] VITALS: BP 140/67; PULSE 77; RESP 16
[2024-02-16 15:45] VITALS: BP 128/70; PULSE 72; RESP 16
== END 2024-02-16 16:00 | disposition home or self-care (01) ==
PROVIDERS: PCP Internal Medicine; Visit Provider Anesthesiology Pain Medicine
PROC: (CPT 64628; principal; 2024-02-16 13:30)
DX: M54.51 Vertebrogenic low back pain (principal); M47.817 Spondylosis without myelopathy or radiculopathy, lumbosacral region; M48.061 Spinal stenosis, lumbar region without neurogenic claudication; I10 Essential (primary) hypertension; E11.9 Type 2 diabetes mellitus without complications; I25.2 Old myocardial infarction; E78.5 Hyperlipidemia, unspecified; G47.00 Insomnia, unspecified; E55.9 Vitamin D deficiency, unspecified; G89.29 Other chronic pain; E66.01 Morbid (severe) obesity due to excess calories; Z68.41 Body mass index [BMI] 40.0-44.9, adult; Z79.82 Long term (current) use of aspirin; Z79.84 Long term (current) use of oral hypoglycemic drugs; Z98.890 Other specified postprocedural states; Z87.891 Personal history of nicotine dependence; Z80.52 Family history of malignant neoplasm of bladder
CPT/HCPCS: 64628; 64629; 82948; 99199; J0330; J0690; J2405; J2704; J7120; Q9965

== ENCOUNTER 2024-03-09 10:05 | Outpatient (CLI) | payer MEDICARE, SELFPAY ==
[2024-03-09 14:31] LABS: Basophils Percent Auto 0.5 % (0.2-1.2); Eosinophils Absolute Auto 0.2 K/mm3 (0-0.3); Eosinophils Percent Auto 2.6 % (0-4.4); Hematocrit 38.3 % (37.0-47.0); Hemoglobin 12.2 g/dL (12.0-15.0); Immature Granulocyte Absolute 0.06 K/mm3 (0.00-0.031); Immature Granulocyte Percent A 0.7 % (0-0.5); Lymphocytes Absolute Auto 2.12 K/mm3 (0.9-3.2); Lymphocytes Percent Auto 25.9 % (18.3-44.2); Mean Corpuscular HGB Conc 31.9 g/dl (32-36); Mean Corpuscular Hemoglobin 27.4 pg (26-34); Mean Corpuscular Volume 86.1 fl (80-100); Mean Platelet Volume 11.6 fl (7.4-10.4); Monocytes Absolute Auto 0.6 K/mm3 (0.1-0.6); Monocytes Percent Auto 7.6 % (2.6-8.5); Neutrophils Absolute Auto 5.2 K/mm3 (1.3-6.7); Neutrophils Percent Auto 62.7 % (45.5-73.1); Platelet Count Result 268 k/mm3 (150-375); Red Blood Count 4.45 M/mm3 (4.2-5.4); Red Cell Distribution Width 14.6 % (11.5-14.5); White Blood Count 8.2 K/mm3 (4.5-10.0)
[2024-03-09 14:34] LABS: Alanine Aminotransferase 20 U/L (6-35); Alkaline Phosphatase 84 U/L (38-126); Anion Gap 9 mmol/L (4-12); Aspartate Amino Transferase 39 U/L (14-36); Bilirubin,Total 0.6 mg/dL (0.2-1.3); Blood Urea Nitrogen 17 mg/dL (7-17); Calcium 9.3 mg/dL (8.4-10.2); Carbon Dioxide 32 mmol/L (22-30); Chloride 97 mmol/L (98-107); Cholesterol 171 mg/dL (0-200); Estimated Glomerular Filt Rate > 60; Glucose 170 mg/dL (65-110); HDL Direct 39 mg/dL; Potassium 3.7 mmol/L (3.4-5.0); Sodium 138 mmol/L (137-145); Triglycerides 139 mg/dL (<150)
[2024-03-09 14:39] LABS: Microalbumin Urine Random 40.9 mg/L (0-16.7)
[2024-03-09 14:46] LABS: LDL Cholesterol Direct 83 mg/dL
[2024-03-09 14:49] LABS: Creatinine Urine 81.5 mg/dL; MALB Creatinine Ratio 50.2 mg/g (0-30)
[2024-03-09 17:41] LABS: Hemoglobin A1C 7.8 % (<5.7)
== END 2024-03-09 10:06 | disposition home or self-care (01) ==
PROVIDERS: PCP Internal Medicine; Visit Provider Nurse Practitioner
DX: E11.9 Type 2 diabetes mellitus without complications (principal)
CPT/HCPCS: 36415; 80053; 80061; 82043; 83036; 85025

== ENCOUNTER 2024-09-15 10:43 | Outpatient (CLI) | payer MEDICARE, SELFPAY ==
--- OUTSIDE RECORDS SUMMARY | 2024-09-15 12:01 | XMS_ITS | Clinical Summary ---
Author Organization [facility] Address [facility] [place] [address] Care Team Providers Care Delivery Crew Member Name Role Phone Unavailable Primary Care Provider Unavailabl e Social History Tobacco Use Types Packs/Day Years Used Date Smoking Tobacco: Never Assessed Comments Unknown Sex and Gender Information Value Date Recorded Sex Assigned at Not on file Legal Sex Female 4:49 PM CDT Gender Identity Not on file Sexual Orientation Not on file Plan of Treatment Health Maintenance Due Date Last Done Comments Colorectal Cancer Screening Colonoscopy (10 Years) 1951 Hepatitis C 1969 DTaP, Tdap and Td Vaccines ( 1 - Tdap) 1970 Mammogram Screening 1991 Zoster Vaccines (1 of 2) 2001 Dexa Scan (General) 2016 Pneumococcal Vaccine: 50+ Ye ars (1 of 1 - PCV) 2016 COVID-19 Vaccine ( - 2023-2 5 season) 2024 RSV Immunization or 60+ Years (1 - 1-dose 75+ series) 2026 Meningococcal B Vaccine Aged Out No l onger eligible based on patient's age to complete this topic Meningococcal Vaccine Aged Out No brooks tahmina eligible based on patient's age to complete this topic RSV Immunizations Under 20 Months Aged Out No longer eligible based on patient's age to complete this topic
--- OUTSIDE RECORDS SUMMARY | 2024-09-15 12:01 | XMS_ITS | Clinical Summary ---
Author Organization [facility] Address [address] [place] [address] Phone Care Team Providers Care Job Service Consultant Name Role Phone Woodrow Loja DO Primary Care Provider [phone] Benita King DPM Unavailable [phone] Allergies No known active allergies Medications metFORMIN (GLUCOPHAGE) 1,000 mg tablet take 1 tablet by oral route 2 times every day with morning and evening meals 0 0 6 Active Additional Information Patient taking differently:1,000 mgDaily with breakfast, Reported on 02/03/2020 famotidine (PEPCID) 20 mg tablet take 1 tablet by oral route 2 times every day 0 [address] (VOLTAREN) 75 mg EC tablet take 1 tablet by oral route 2 times every day 0 0 7 Active losartan-hydroC HLOROthiazide (HYZAAR) 50-12.5 mg per tablet take 1 tablet by oral route every day 0 0 4 Active amLODIPine (NORVASC) 10 mg tablet take 1 tablet by oral route every day 0 0 4 Active metoprolol (LOPRESSOR) 25 mg tablet take 1 tablet by oral route 2 times every day 0 0 4 Active atorvastatin (LIPITOR) 40 mg tablet Take 40 mg by mouth nightly Active multivitamin capsule Take 1 capsule by mouth daily Active aspirin 81 mg enteric coated tablet Take 81 mg by mouth daily Active oxyCODONE-aceta minophen (PERCOCET) 5-325 mg per tabletIndicatio ns:Pain Take 1 tablet by mouth every 4 (four) hours as needed for pain 40 tablet 0 Active Active Problems Problem Noted Date Diagnosed Date Metatarsalgia of right foot 01/27/2020 Overview (01/27/2020): Added automatically from request for surgery [id number] Acquired hammer toe of right foot 01/27/2020 Overview (01/27/2020): Added automatically from request for surgery [id number] Surgical History Surgery Date Site/Laterality Comments HYSTERECTOMY TUMOR REMOVAL JOINT REPLACEMENT KELOID EXCISION Medical History Medical History Date Comments Hypertension Hyperlipidemia GERD (gastroesophageal reflux disease) Type 2 diabetes mellitus (HCC) Social History Tobacco Use Types Packs/Day Years Used Date Smoking Tobacco: Former Cigarettes Q uit: 1980 Smokeless Tobacco: Never Alcohol Use Standard Drinks/Week Comments Yes 0 (1 standard drink = 0.6 oz pur e alcohol) occasional Comments No Sex and Gender Information Value Date Recorded Sex Assigned at Not on file 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 Gender Identity Not on file Sexual Orientation Not on file Obstetrics History Last Filed Vital Signs Vital Sign Reading Time Taken Comments Blood Pressure 129/74 02/11/2020 3:30 PM CDT Pulse 70 02/11/2020 3:30 PM CDT Temperature 36.1 C (97 F) 02/11/2020 2:56 PM CDT Respiratory Rate 18 02/11/2020 3:30 PM CDT Oxygen Saturation 100% 02/11/2020 3:30 PM CDT Inhaled Oxygen Concentration - - Weight 112 kg (246 lb 14.6 oz) 02/11/2020 10:46 AM CDT Height 162.6 cm (5' 4 ) 02/11/2020 10:46 AM CDT Body Mass Index 42.38 02/11/2020 10:46 AM CDT Plan of Treatment Not on file Medical Devices Implanted Type Area Fondant Machine Operator Device Identifier Shelf Expiration Date Model / Serial / Lot 2.5 X 12mm Screw Implanted:Qty : 1 on 02/11/2020 by Benita King DPM at [facility] Screw Right: Second Toe [facility] [id number] / / Insurance TRADITIONAL R HMO REF R HMO REF Care Teams Job Service Consultant Relationship Specialty Start Date End Date Woodrow Loja DO PCP - General Internal Medicine 08/07/18 Benita King DPM [address] [place] [id number] Consulting Physician Foot and Ankle Surg 02/11/20
--- OUTSIDE RECORDS SUMMARY | 2024-09-15 12:01 | XMS_ITS | Referral Summary ---
Author Organization [facility] Address [address] [place] [address] Phone Care Team Providers Care Rice Milling Supervisor Name Role Phone Woodrow Loja DO Primary Care Provider [phone] Benita King DPM Unavailable [phone] Allergies No known active allergies Medications metFORMIN [...] (01/27/2020): Added automatically from request for surgery [id number] Acquired hammer toe of right foot 01/27/2020 Overview (01/27/2020): Added automatically from request for surgery [id number] Social History Tobacco Use Types Packs/Day Years Used Date Smoking Tobacco: Former Cigarettes Q uit: 1979 Smokeless Tobacco: Never Alcohol Use Standard Drinks/Week Comments Yes 0 (1 standard drink = 0.6 oz pur e alcohol) occasional Comments No Sex and Gender Information Value Date Recorded Sex Assigned at Not on file 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 Sex 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 Gender Identity Not on file Sexual Orientation Not on file Last Filed Vital Signs Vital Sign Reading [...] on file Medical Devices Implanted Type Area Corporate General Manager Device Identifier Shelf Expiration Date Model / Serial / Lot 2.5 X 12mm Screw Implanted:Qty : 1 on 02/11/2020 by Benita King DPM at [facility] Screw Right: Second Toe [employer] [id number] / / Insurance ANTH TRADITIONAL R HMO REF Member Subscriber Plan / Payer (Ef fective 2018-Present) Name:Eveline Rios Relation to Subscriber:Self Name:Eveline Rios Payer ID:[id number] (NAIC) Type:[facility] MED[facility] Address: [place] [id number] [place] [id number] HMO REF Care Teams Rice Milling Supervisor Relationship Specialty Start Date End Date Woodrow Loja DO PCP - General Internal Medicine 08/07/18 Benita King DPM [address] [place] [address] Consulting Physician Foot and Ankle Surg 02/11/20
[2024-09-15 13:32] LABS: Hemoglobin A1C 7.7 % (<5.7)
== END 2024-09-15 10:44 | disposition home or self-care (01) ==
LOC: ANHGOSHLAB 10:44
PROVIDERS: PCP Internal Medicine; Visit Provider Nurse Practitioner
DX: E11.9 Type 2 diabetes mellitus without complications (principal)
CPT/HCPCS: 36415; 83036

== ENCOUNTER 2025-04-06 11:12 | Outpatient (CLI) | payer MEDICARE, SELFPAY ==
[2025-04-06 14:00] LABS: Hematocrit 40.1 % (37.0-47.0); Hemoglobin 12.7 g/dL (12.0-15.0); Immature Granulocyte Percent A 0.5 % (0-0.5); Lymphocytes Absolute Auto 2.46 K/mm3 (0.9-3.2); Mean Corpuscular HGB Conc 31.7 g/dl (32-36); Mean Corpuscular Hemoglobin 27.1 pg (26-34); Mean Corpuscular Volume 85.7 fl (80-100); Nucleated Red Blood Cells Absolute Auto 0.000 K/mm3 (0.0-0.012); Nucleated Red Blood Cells Perc 0.0 % (0.0-0.2); Platelet Count Result 313 k/mm3 (150-375); Red Blood Count 4.68 M/mm3 (4.2-5.4); White Blood Count 8.8 K/mm3 (4.5-10.0)
[2025-04-06 14:46] LABS: MALB Creatinine Ratio 21.5 mg/g (0-30)
[2025-04-06 15:54] LABS: Alanine Aminotransferase 20 U/L (6-35); Albumin Level 4.4 g/dL (3.5-5.1); Alkaline Phosphatase 64 U/L (38-126); Anion Gap 9 mmol/L (4-12); Aspartate Amino Transferase 30 U/L (14-36); Bilirubin,Total 0.6 mg/dL (0.2-1.3); Blood Urea Nitrogen 16 mg/dL (7-17); Calcium 9.3 mg/dL (8.4-10.2); Carbon Dioxide 31 mmol/L (22-30); Chloride 97 mmol/L (98-107); Cholesterol 186 mg/dL (0-200); Estimated Glomerular Filt Rate > 60; Glucose 122 mg/dL (65-110); HDL Direct 47 mg/dL; Potassium 3.7 mmol/L (3.4-5.0); Sodium 137 mmol/L (137-145); Total Protein 7.4 g/dL (6.3-8.2); Triglycerides 163 mg/dL (<150)
[2025-04-06 17:33] LABS: Hemoglobin A1C 6.4 % (<5.7)
--- OUTSIDE RECORDS SUMMARY | 2025-04-07 10:53 | XMS_ITS | Clinical Summary ---
Author Organization [facility] Address [address] [place] [address] Phone Care Team Providers Care Hat Designer Name Role Phone Woodrow Loja DO Primary Care Provider Benita King DPTitus Unavailable [phone] Allergies No known active allergies Medications metFORMIN [...] (01/27/2020): Added automatically from request for surgery [id number] Acquired hammer toe of right foot 01/27/2020 Overview (01/27/2020): Added automatically from request for surgery [id number] Surgical History Surgery Date Site/Laterality Comments HYSTERECTOMY TUMOR REMOVAL JOINT REPLACEMENT KELOID EXCISION Medical History Medical History Date Comments Hypertension Hyperlipidemia GERD (gastroesophageal reflux disease) Type 2 diabetes mellitus Social History Tobacco Use Types Packs/Day Years Used Date Smoking Tobacco: Former Cigarettes Q uit: 1980 Smokeless Tobacco: Never Alcohol Use Standard Drinks/Week Comments Yes 0 (1 standard drink = 0.6 oz pur e alcohol) occasional Comments No Sex and Gender Information Value Date Recorded Sex Assigned at Not on file 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 Gender Identity Not on file Sexual Orientation [...] 10:46 AM CDT Height 162.6 cm (5' 4) 02/11/2020 10:46 AM CDT Body Mass Index 42.38 02/11/2020 10:46 AM CDT Plan of Treatment Not on file Medical Devices Implanted Type Area Cigar Patcher Device Identifier Shelf Expiration Date Model / Serial / Lot 2.5 X 12mm Screw Implanted:Qty : 1 on 02/11/2020 by Benita King DPM at [facility] Screw Right: Second Toe [employer] [id number] / / Insurance TRADITIONAL R HMO REF [facility] Address: [address] [address] [place] [address] R HMO REF Care Teams Hat Designer Relationship Specialty Start Date End Date Woodrow Loja DO PCP - General Internal Medicine 08/07/18 Benita King DPM [address] [place] [id number] Consulting Physician Foot and Ankle Surg 02/11/20
--- OUTSIDE RECORDS SUMMARY | 2025-04-07 10:53 | XMS_ITS | Clinical Summary ---
Author Organization [facility] Address [address] [place] [id number] Care Team Providers Care Dredge Boat Engineer Name Role Phone Unavailable Primary Care Provider [...] 1 - Tdap) 1970 Mammogram Screening 1991 Pneumococcal Vaccine: 50+ Ye ars (1 of 1 - PCV) 2001 Zoster Vaccines (1 of 2) 2001 Dexa Scan (General) 2016 COVID-19 Vaccine (2024-2 6 season) 2025 Influenza Adult (#1) 2025 RSV Immunization or 60+ Years (1 - 1-dose 75+ series) 2026 Hepatitis A Vaccines Aged Out No long er eligible based on patient's age to complete this topic Meningococcal B Vaccine Aged Out No l onger eligible based on patient's age to complete this topic Meningococcal Vaccine Aged Out No brooks tahmina eligible based on patient's age to complete this topic RSV Immunizations Under 20 Months Aged Out No longer eligible based on patient's age to complete this topic
== END 2025-04-06 11:13 | disposition home or self-care (01) ==
PROVIDERS: PCP Nurse Practitioner; Visit Provider Nurse Practitioner
DX: E78.2 Mixed hyperlipidemia (principal); E11.9 Type 2 diabetes mellitus without complications; E55.9 Vitamin D deficiency, unspecified
CPT/HCPCS: 36415; 80053; 80061; 82043; 82306; 83036; 85025

== ENCOUNTER 2025-04-06 13:04 | Outpatient (CLI) | payer MEDICARE, SELFPAY ==
--- NOTE | ~2025-04-06 | MM_ITS ---
EXAMINATION: MM screening [facility] BI w miguel a HISTORY: Screening TECHNIQUE: Craniocaudal and mediolateral oblique 3-D tomosynthesis images were obtained and synthetic 2-D images were generated. CAD analysis was submitted and interpreted. COMPARISON: Comparison to multiple prior studies sequentially, with oldest reviewed study dated 07/23/2017. BREAST PARENCHYMAL COMPOSITION: There are scattered areas of fibroglandular density. FINDINGS: There is no evidence of suspicious mass, calcification, or architectural distortion to suggest malignancy in either breast. Scattered benign-appearing calcifications are present. IMPRESSION: 1. No mammographic evidence of malignancy. 2. Recommend routine screening mammography in one year. BI-RADS Category 2: Benign finding(s). Reviewed, dictated and finalized at location A. OTIST
== END 2025-04-06 13:05 | disposition home or self-care (01) ==
PROVIDERS: PCP Nurse Practitioner; Visit Provider Nurse Practitioner
DX: Z12.31 Encounter for screening mammogram for malignant neoplasm of breast (principal)
CPT/HCPCS: 77063; 77067